=== PATIENT | male | born 1950 | race Caucasian/White ===

== ENCOUNTER 2017-09-14 12:22 | Day surgery (SDC) | payer OTHER ==
[~2017-09-14] VITALS: Ht 177.8 cm; Wt 110.1 kg
[~2017-09-14 12:22] MED LIST: AMLO10TA2 PO; ASPI-496 PO; ATOR20TA9 PO; CETI10TA18 PO; CHOL400C PO; CYAN25009 PO; FENO145T30 PO; LOSA50TA6 PO; METF500T4 PO; PRAZ5CAP2 PO; SAXA2.5T PO; SERT50TA5 PO
[2017-09-14] MEDS ORDERED: LACTATED RINGERS 1,000 ML IV SCH (13:00)
[2017-09-14 13:14] VITALS: BP 128/87
[2017-09-14] MEDS ORDERED: PROPOFOL 10 MG/ML, 20ML ONE ×7 (13:21→14:39)
[2017-09-14] MEDS ORDERED: WATER-INJECTION,STERILE 10 ML IV ONE (14:04)
[2017-09-14] MEDS ORDERED: CEFAZOLIN 1,000 MG ONE ×3 (14:04)
== END 2017-09-14 16:20 ==
LOC: OUT 12:22
PROVIDERS: ATTEND Internal Medicine
DX: K83.1 Obstruction of bile duct (principal); K21.0 Gastro-esophageal reflux disease with esophagitis; G47.33 Obstructive sleep apnea (adult) (pediatric); E11.9 Type 2 diabetes mellitus without complications; E78.5 Hyperlipidemia, unspecified; E21.3 Hyperparathyroidism, unspecified; I10 Essential (primary) hypertension; Z79.82 Long term (current) use of aspirin
CPT/HCPCS: 43242; 82962; 88172; 88173; 88305; 93005; J0690; J2704; J7120

== ENCOUNTER → 2019-03-17 | Outpatient (CLI) | payer OTHER ==
[~2019-03-17] MED LIST changes: -AMLO10TA2 PO; +AMLO10TA8 PO; +ATOR20TA37 PO; -ATOR20TA9 PO; +LOSA50TA14 PO; -LOSA50TA6 PO; +METF500T17 PO; -METF500T4 PO; +SERT50TA28 PO; -SERT50TA5 PO
== END | disposition home or self-care (01) ==
LOC: CVU 14:03
PROVIDERS: ATTEND Internal Medicine Cardiovascular Disease
DX: I08.3 Combined rheumatic disorders of mitral, aortic and tricuspid valves (principal); I65.23 Occlusion and stenosis of bilateral carotid arteries; I10 Essential (primary) hypertension; E11.9 Type 2 diabetes mellitus without complications; Z87.891 Personal history of nicotine dependence
CPT/HCPCS: 93306; 93880

== ENCOUNTER 2019-05-11 10:08 | Day surgery (SDC) | payer OTHER ==
[~2019-05-11] VITALS: Ht 175.3 cm; Wt 96.4 kg
[~2019-05-11 10:08] MED LIST changes: +FENO145T19 PO; -FENO145T30 PO
[2019-05-11 10:55] VITALS: BP 129/89
[2019-05-11] MEDS ORDERED: OMEG1CAP23 PO (10:55)
[2019-05-11] MEDS ORDERED: CHOL500050 PO (10:55)
[2019-05-11] MEDS ORDERED: CYAN250013 PO (10:55)
[2019-05-11] MEDS ORDERED: LOSA25TA25 PO (10:55)
[2019-05-11] MEDS ORDERED: TAMS-11 PO (10:55)
[2019-05-11] MEDS ORDERED: HYDR-826 PO (10:55)
[2019-05-11] MEDS ORDERED: LIPA1CAP61 PO (10:55)
[2019-05-11] MEDS ORDERED: SERT100T32 PO (10:55)
[2019-05-11] MEDS ORDERED: SODIUM CHLORIDE 0.9% 1,000 ML IV SCH ×2 (10:57→13:14)
[2019-05-11] MEDS ORDERED: DIPHENHYDRAMINE 50 MG/ML, 1ML IVPush ONE (11:00)
[2019-05-11] MEDS ORDERED: DIPHENHYDRAMINE 50 MG/ML, 1ML ONE (11:11)
[2019-05-11] MEDS ORDERED: MIDAZOLAM 1 MG/ML, 5ML ONE (12:30)
[2019-05-11] MEDS ORDERED: FENTANYL PF 100 MCG/2ML ONE (12:30)
[2019-05-11] MEDS ORDERED: LIDOCAINE 2%, 20ML ONE (12:31)
[2019-05-11] MEDS ORDERED: HEPARIN 1,000 UNITS/ML, 10ML ONE (12:31)
[2019-05-11] MEDS ORDERED: VERAPAMIL 2.5 MG/ML, 2ML ONE (12:31)
== END 2019-05-11 15:11 | disposition home or self-care (01) ==
LOC: CACL 10:08
PROVIDERS: ATTEND Internal Medicine Cardiovascular Disease
DX: I35.0 Nonrheumatic aortic (valve) stenosis (principal); I25.10 Atherosclerotic heart disease of native coronary artery without angina pectoris; I25.83 Coronary atherosclerosis due to lipid rich plaque; E11.22 Type 2 diabetes mellitus with diabetic chronic kidney disease; I12.9 Hypertensive chronic kidney disease with stage 1 through stage 4 chronic kidney disease, or unspecified chronic kidney disease; N18.4 Chronic kidney disease, stage 4 (severe); E66.3 Overweight; Z68.30 Body mass index [BMI] 30.0-30.9, adult; Z79.899 Other long term (current) drug therapy; Z87.891 Personal history of nicotine dependence; Z91.030 Bee allergy status; Z91.041 Radiographic dye allergy status
CPT/HCPCS: 93458; 99156; C1769; C1894; J1200; J1644; J2250; J3010; Q9967

== ENCOUNTER 2019-05-23 08:44 | Outpatient (CLI) | payer OTHER ==
[~2019-05-23 08:44] MED LIST changes: +CHOL500050 PO; +CYAN250013 PO; -FENO145T19 PO; +FENO145T30 PO; +HYDR-826 PO; +LIPA1CAP61 PO; +LOSA25TA25 PO; +OMEG1CAP23 PO; +SERT100T32 PO; +TAMS-11 PO
== END 2019-05-23 23:59 | disposition home or self-care (01) ==
LOC: CVU 08:44 → RAD 23:59
PROVIDERS: ATTEND Internal Medicine Cardiovascular Disease
DX: Z01.818 Encounter for other preprocedural examination (principal); I35.0 Nonrheumatic aortic (valve) stenosis; R16.1 Splenomegaly, not elsewhere classified; K76.9 Liver disease, unspecified; N20.0 Calculus of kidney; I77.811 Abdominal aortic ectasia; K40.90 Unilateral inguinal hernia, without obstruction or gangrene, not specified as recurrent; R06.02 Shortness of breath; I65.29 Occlusion and stenosis of unspecified carotid artery; N18.4 Chronic kidney disease, stage 4 (severe); Z79.899 Other long term (current) drug therapy
CPT/HCPCS: 71250; 74176; 93978; 94010; 94726; 94729

== ENCOUNTER 2019-05-30 06:07 | Inpatient (IN) | payer OTHER ==
[~2019-05-30] VITALS: Ht 177.8 cm; Wt 87.3 kg
[2019-05-30] MEDS ORDERED: SODIUM CHLORIDE 0.9% 1,000 ML IV ONE (06:23)
[2019-05-30] MEDS ORDERED: FAMOTIDINE 20 MG/2 ML IVPush ONE (06:30)
[2019-05-30] MEDS ORDERED: methylPREDNISolone SOD SUCC 125 MG/2 ML IVPush ONE (06:30)
[2019-05-30] MEDS ORDERED: DIPHENHYDRAMINE 50 MG/ML, 1ML IVPush ONE (06:30)
[2019-05-30 06:36] VITALS: BP 120/84
[2019-05-30 07:00] LABS: BASOPHILS # (AUTO) 0.01 x10^3/uL (0-0.1); BASOPHILS % (AUTO) 0 % (0-1); EOSINOPHILS # (AUTO) 0.05 x10^3/uL (0-0.4); EOSINOPHILS % (AUTO) 1 % (1-7); LYMPHOCYTES # (AUTO) 0.95 x10^3/uL (1-3.4); LYMPHOCYTES % (AUTO) 24 % (22-44); MD NO; MEAN CORPUSCULAR HGB CONC 33.6 g/dL (33.2-36.2); MEAN CORPUSCULAR VOLUME 86.3 fL (81-97); MEAN PLATELET VOLUME 6.5 fL (7.4-10.4); MONOCYTES # (AUTO) 0.24 x10^3/uL (0.2-0.8); MONOCYTES % (AUTO) 6 % (2-9); NEUTROPHILS # (AUTO) 2.79 x10^3/uL (1.8-6.8); NEUTROPHILS % (AUTO) 69 % (42-75); PLATELET COUNT 118 x10^3/uL (130-400); RED BLOOD COUNT 4.11 x10^6/uL (4.38-5.82)
[2019-05-30] MEDS ORDERED: methylPREDNISolone SOD SUCC 125 MG/2 ML ONE ×2 (07:06→07:08)
[2019-05-30] MEDS ORDERED: DIPHENHYDRAMINE 50 MG/ML, 1ML ONE (07:06)
[2019-05-30 07:09] LABS: ALANINE AMINOTRANSFERASE 15 U/L (12-78); ALBUMIN 3.4 g/dL (3.4-5.0); ANION GAP 7 mmol/L (5-15); CALCIUM 8.1 mg/dL (8.5-10.1); CHLORIDE 109 mmol/L (98-107); CREATININE 2.68 mg/dL (0.7-1.3)
[2019-05-30] MEDS ORDERED: FAMOTIDINE 20 MG/2 ML ONE (07:09)
[2019-05-30 07:13] LABS: ALKALINE PHOSPHATASE 190 U/L (45-117); BILIRUBIN,TOTAL 0.4 mg/dL (0.2-1.0); TOTAL PROTEIN 7.4 g/dL (6.4-8.2)
[2019-05-30] MEDS ORDERED: CHLORHEXIDINE 15 ML UDC MM ONE (07:30)
[2019-05-30 07:40] LABS: INTERNATIONAL NORMALIZED RATIO 0.98 (0.93-1.1); PROTHROMBIN TIME 10.4 Seconds (9.6-11.5)
[2019-05-30] MEDS ORDERED: ROCURONIUM 10MG/ML,5ML ONE (07:45)
[2019-05-30] MEDS ORDERED: PROTAMINE SULFATE 10 MG/ML, 25ML ONE (07:45)
[2019-05-30] MEDS ORDERED: FENTANYL PF 250 MCG/5ML ONE (07:45)
[2019-05-30] MEDS ORDERED: SUCCINYLCHOLINE 20 MG/ML, 10ML ONE (07:45)
[2019-05-30] MEDS ORDERED: HEPARIN 1,000 UNITS/ML, 30ML ONE (07:45)
[2019-05-30] MEDS ORDERED: PROPOFOL 10 MG/ML, 20ML ONE (07:52)
[2019-05-30] MEDS ORDERED: ONDANSETRON 2MG/ML, 2ML ONE (07:52)
[2019-05-30] MEDS ORDERED: PHENYLEPHRINE 10 MG/ML ONE (07:52)
[2019-05-30] MEDS ORDERED: DEXAMETHASONE 4 MG/ML, 1ML ONE (07:52)
[2019-05-30 09:00] VITALS: BP 128/75
[2019-05-30] MEDS ORDERED: DEXTROSE 4 GM TAB.CHEW PO PRN (09:00)
[2019-05-30] MEDS ORDERED: CYANOCOBALAMIN 1000 MG PO SCH (09:00)
[2019-05-30] MEDS: SERTRALINE 100MG TABLET PO SCH (09:00)
[2019-05-30] MEDS ORDERED: GLUCAGON 1 MG IM PRN (09:00)
[2019-05-30] MEDS ORDERED: ACETAMINOPHEN 325 MG TABLET PO PRN (09:00)
[2019-05-30] MEDS ORDERED: hydrALAzine 20 MG/ML, 1ML IVPush PRN (09:00)
[2019-05-30] MEDS ORDERED: ERGOCALCIFEROL 50,000 UNIT CAPSULE PO SCH (09:00)
[2019-05-30] MEDS ORDERED: LABETALOL 20 MG/4 ML IVPush PRN (09:00)
[2019-05-30] MEDS ORDERED: DEXTROSE 50%, 50ML SYRINGE IVPush PRN (09:00)
[2019-05-30] MEDS ORDERED: HYDROcodone/APAP 5/325 TABLET PO PRN (09:00)
[2019-05-30] MEDS ORDERED: CLOPIDOGREL 300 MG TABLET PO ONE (09:00)
[2019-05-30] MEDS: SODIUM CHLORIDE FLUSH 10ML SYR IVF SCH ×2 (09:38→20:19)
[2019-05-30] MEDS ORDERED: CYANOCOBALAMIN 1,000 MCG TABLET PO SCH (09:57)
[2019-05-30] MEDS ORDERED: PANCRELIPASE 24,000 CAPSULE.DR PO SCH ×2 (11:00→16:00)
[2019-05-30] MEDS ORDERED: PANCRELIPASE 24,000 CAPSULE.DR PO PRN (12:00)
[2019-05-30] MEDS: INSULIN LISPRO 100 UNITS/ML, PEN SQ-INSULIN SCH ×3 (12:20→20:28)
[2019-05-30 14:00] VITALS: BP 118/70
[2019-05-30] MEDS: PANCRELIPASE 24,000 CAPSULE.DR PO SCH (16:01)
[2019-05-30 17:14] VITALS: BP 133/75
[2019-05-30 18:33] VITALS: BP 116/73
[2019-05-30] MEDS: TAMSULOSIN 0.4 MG CAP.ER.24H PO SCH (20:18)
[2019-05-30] MEDS: OMEGA-3/FISH OIL CAPSULE PO SCH (20:18)
[2019-05-30] MEDS ORDERED: LOSARTAN 25MG TABLET PO SCH (21:00)
[2019-05-31 01:46] VITALS: BP 115/69
[2019-05-31 04:53] LABS: BASOPHILS # (AUTO) 0.01 x10^3/uL (0-0.1); BASOPHILS % (AUTO) 0 % (0-1); EOSINOPHILS # (AUTO) 0.02 x10^3/uL (0-0.4); EOSINOPHILS % (AUTO) 1 % (1-7); LYMPHOCYTES # (AUTO) 0.65 x10^3/uL (1-3.4); LYMPHOCYTES % (AUTO) 12 % (22-44); MD NO; MEAN CORPUSCULAR HEMOGLOBIN 29.2 pg (27.5-34.5); MEAN CORPUSCULAR HGB CONC 33.7 g/dL (33.2-36.2); MEAN CORPUSCULAR VOLUME 86.5 fL (81-97); MEAN PLATELET VOLUME 6.7 fL (7.4-10.4); MONOCYTES # (AUTO) 0.36 x10^3/uL (0.2-0.8); MONOCYTES % (AUTO) 7 % (2-9); NEUTROPHILS # (AUTO) 4.35 x10^3/uL (1.8-6.8); NEUTROPHILS % (AUTO) 81 % (42-75); PLATELET COUNT 128 x10^3/uL (130-400); RED BLOOD COUNT 3.57 x10^6/uL (4.38-5.82); RED CELL DISTRIBUTION WIDTH 14.1 % (9.4-14.8)
[2019-05-31 04:57] LABS: CHLORIDE 110 mmol/L (98-107)
[2019-05-31 05:02] LABS: ANION GAP 6 mmol/L (5-15); CALCIUM 8.1 mg/dL (8.5-10.1); CREATININE 2.63 mg/dL (0.7-1.3)
[2019-05-31] MEDS: INSULIN LISPRO 100 UNITS/ML, PEN SQ-INSULIN SCH ×2 (07:00→11:43)
[2019-05-31 08:00] VITALS: BP 119/70
[2019-05-31] MEDS: PANCRELIPASE 24,000 CAPSULE.DR PO SCH ×2 (08:07→11:43)
[2019-05-31] MEDS: TAMSULOSIN 0.4 MG CAP.ER.24H PO SCH (08:08)
[2019-05-31] MEDS: SERTRALINE 100MG TABLET PO SCH (08:08)
[2019-05-31] MEDS: OMEGA-3/FISH OIL CAPSULE PO SCH (08:08)
[2019-05-31] MEDS: SODIUM CHLORIDE FLUSH 10ML SYR IVF SCH (08:12)
[2019-05-31] MEDS ORDERED: CLOPIDOGREL 75 MG TABLET PO SCH (09:00)
[2019-05-31] MEDS ORDERED: ASPIRIN 81 MG TABLET EC PO SCH (09:00)
[2019-05-31] MEDS ORDERED: CLOP75TA PO (10:49)
[2019-05-31] MEDS ORDERED: ASPI81TA45 PO (10:49)
== END 2019-05-31 12:05 | disposition home or self-care (01) | DRG 266 ==
LOC: ORIP 06:07 → CCU 09:01 → 5SO 16:13 → DCLOUNGE 05-31 11:57
PROVIDERS: ADMIT Internal Medicine Cardiovascular Disease; ATTEND Internal Medicine Cardiovascular Disease
PROC: B310YZZ Fluoroscopy of Thoracic Aorta using Other Contrast (ICD-10-PCS; 2019-05-30)
PROC: 03HY32Z Insertion of Monitoring Device into Upper Artery, Percutaneous Approach (ICD-10-PCS; 2019-05-30)
PROC: B24BZZ4 Ultrasonography of Heart with Aorta, Transesophageal (ICD-10-PCS; 2019-05-30)
PROC: 02RF38Z Replacement of Aortic Valve with Zooplastic Tissue, Percutaneous Approach (ICD-10-PCS; principal; 2019-05-30 08:00)
DX: I35.0 Nonrheumatic aortic (valve) stenosis (principal); Z00.6 Encounter for examination for normal comparison and control in clinical research program; I50.33 Acute on chronic diastolic (congestive) heart failure; I13.0 Hypertensive heart and chronic kidney disease with heart failure and stage 1 through stage 4 chronic kidney disease, or unspecified chronic kidney disease; N18.3 Chronic kidney disease, stage 3 (moderate); N40.0 Benign prostatic hyperplasia without lower urinary tract symptoms; Z91.041 Radiographic dye allergy status; Z91.030 Bee allergy status; Z79.899 Other long term (current) drug therapy
CPT/HCPCS: 33361; 36415; 93355; J3490; 80048; 80053; 82962; 83880; 85025; 85347; 85610; 85730; 86850; 86900; 86923; 87081; 93005; 93306; 93312; 93321; 93325; C1760; C1769; C1894; G0378; J1100; J1644; J2405; J2704; J2720; J3010; J0330; J1200; J1815; J2370; J2930; Q0177; Q9967

== ENCOUNTER → 2019-06-27 | Outpatient (CLI) | payer OTHER ==
[~2019-06-27] MED LIST changes: +ASPI81TA45 PO; +CLOP75TA PO; +FENO145T19 PO; -FENO145T30 PO
== END | disposition home or self-care (01) ==
LOC: CVU 09:29
PROVIDERS: ATTEND Internal Medicine Cardiovascular Disease
DX: I08.1 Rheumatic disorders of both mitral and tricuspid valves (principal); R06.02 Shortness of breath; I65.29 Occlusion and stenosis of unspecified carotid artery
CPT/HCPCS: 93306; 93356

== ENCOUNTER → 2020-06-18 | Outpatient (CLI) | payer OTHER ==
[~2020-06-18] MED LIST changes: +AMLO-211 PO; -AMLO10TA8 PO
== END | disposition home or self-care (01) ==
LOC: CFH 13:02
PROVIDERS: ATTEND Internal Medicine Cardiovascular Disease
DX: Z01.810 Encounter for preprocedural cardiovascular examination (principal); I08.1 Rheumatic disorders of both mitral and tricuspid valves; R06.02 Shortness of breath; I65.29 Occlusion and stenosis of unspecified carotid artery
CPT/HCPCS: 93306